=== PATIENT | male | born 1950 | race Hispanic/Latino ===

== ENCOUNTER 2018-02-20 05:40 | Observation (INO) | payer OTHER ==
[2018-02-18 15:00] VITALS: BP 149/61
[2018-02-18 15:27] LABS: BASOPHILS % (AUTO) 0.3 % (0.0-5.0); EOSINOPHILS % (AUTO) 2.2 % (0.0-8.0); HEMATOCRIT 40.6 % (42-54); LYMPHOCYTES % (AUTO) 17.3 % (21.0-51.0); MEAN CORPUSCULAR HEMOGLOBIN 31.5 pg (27.0-33.0); MEAN CORPUSCULAR HGB CONC 34.9 g/dL (32.0-36.0); MEAN CORPUSCULAR VOLUME 90.2 fL (79-99); MONOCYTES % (AUTO) 11.1 % (3.0-13.0); NEUTROPHILS % (AUTO) 69.1 % (40.0-77.0); PLATELET COUNT (AUTO) 196 K/uL (130-400)
[2018-02-18 15:40] LABS: CREATININE 0.8 mg/dL (0.5-1.5); POTASSIUM 3.5 mmol/L (3.5-5.1)
[2018-02-18 15:42] LABS: INR 1.1 (0.85-1.15); PARTIAL THROMBOPLASTIN TIME 28.4 SEC (26.3-35.5); PROTHROMBIN TIME 11.5 SEC (9.6-11.6)
[~2018-02-20] VITALS: Ht 170.2 cm; Wt 88.9 kg
[2018-02-20] VITALS (12 sets, daily range): BP systolic 123–154; BP diastolic 65–80
[~2018-02-20 05:40] MED LIST: ASPI-1197 PO; METF500T6 PO; NIFE30TA98 PO; ONDANSETRON HCL 4 MG/2 ML VIAL ONE; PROMETHAZINE HCL 25 MG/ML 1ML AMPULE IM ONE
[2018-02-20] MEDS ORDERED: SODIUM CHLORIDE 0.9% 1000ML 1,000 ML IV SCH (08:00)
[2018-02-20] MEDS ORDERED: CEFAZOLIN 1GM / D5W 50ML 150 ML ONE (08:16)
[2018-02-20] MEDS ORDERED: LIDOCAINE HCL 1% MDV 50ML VIAL ONE (08:16)
[2018-02-20] MEDS ORDERED: BUPIVACAINE/PF 0.25% 30ML VIAL IJ ONE (08:16)
[2018-02-20] MEDS ORDERED: DEXTROSE 50%-WATER 50 ML DISP.SYRIN IV PRN (10:15)
[2018-02-20] MEDS ORDERED: ONDANSETRON HCL 4 MG/2 ML VIAL IV PRN (10:15)
[2018-02-20] MEDS ORDERED: ACETAMINOPHEN-CODEINE 300/30MG TAB PO PRN ×2 (10:15)
[2018-02-20] MEDS ORDERED: TEMAZEPAM 30 MG CAP PO PRN (10:15)
[2018-02-20] MEDS ORDERED: INSULIN HUMULIN R 100 UNIT/ML 3ML SQ SCH (11:30)
[2018-02-20] MEDS ORDERED: POTASSIUM CHLORIDE 20MEQ/100ML 100 ML IV PRN (15:00)
[2018-02-20] MEDS ORDERED: POTASSIUM CHLORIDE 10% ELIXIR 20 MEQ/15 ML UDCUP PO PRN (15:00)
[2018-02-20] MEDS ORDERED: POTASSIUM CHLORIDE 20 MEQ ERTAB PO PRN (15:00)
[2018-02-20] MEDS ORDERED: LIDOCAINE HCL-MPF 1% 2ML VIAL IVP PRN (15:00)
[2018-02-20] MEDS: INSULIN HUMULIN R 100 UNIT/ML 3ML SQ SCH ×2 (16:30→20:57)
[2018-02-20] MEDS: CEFAZOLIN SODIUM 1 GM VIAL IVP SCH (17:10)
[2018-02-20] MEDS ORDERED: METFORMIN HCL 500 MG TABLET PO SCH (21:00)
[2018-02-21] MEDS: CEFAZOLIN SODIUM 1 GM VIAL IVP SCH (00:20)
[2018-02-21 03:29] VITALS: BP 135/74
[2018-02-21 07:00] VITALS: BP 139/82
[2018-02-21] MEDS: INSULIN HUMULIN R 100 UNIT/ML 3ML SQ SCH (07:00)
[2018-02-21] MEDS ORDERED: NIFEDIPINE ER 30 MG TAB PO SCH (09:00)
[2018-02-21] MEDS ORDERED: ASPIRIN 81MG TAB.CHEW PO SCH (09:00)
[2018-02-21 11:00] VITALS: BP 137/81
== END 2018-02-21 12:40 | disposition home or self-care (01) ==
LOC: DAH 05:40 → DAHIP 05:41 → DAH 05:41 → 2AH 13:53
PROVIDERS: ADMIT Internal Medicine; ATTEND Internal Medicine
DX: I45.9 Conduction disorder, unspecified (principal); I10 Essential (primary) hypertension; E11.9 Type 2 diabetes mellitus without complications; Z95.0 Presence of cardiac pacemaker; Z82.49 Family history of ischemic heart disease and other diseases of the circulatory system
CPT/HCPCS: 33208; 36415; 71046; 80048; 82948 ×6; 85025; 85610; 85730; 93005; 96374; 96376; A4218 ×2; A4606; C1785; C1898 ×2; G0378 ×31; J0690 ×3; J2405; J2550; J3490 ×2; J7030

== ENCOUNTER → 2022-03-21 | Outpatient (CLI) | payer OTHER ==
[~2022-03-21] MED LIST changes: +METF-444 PO; -METF500T6 PO; -ONDANSETRON HCL 4 MG/2 ML VIAL ONE; -PROMETHAZINE HCL 25 MG/ML 1ML AMPULE IM ONE
== END | disposition home or self-care (01) ==
LOC: SHCH 13:12
PROVIDERS: ATTEND Internal Medicine Cardiovascular Disease
DX: I08.0 Rheumatic disorders of both mitral and aortic valves (principal); I49.5 Sick sinus syndrome; Z95.0 Presence of cardiac pacemaker
CPT/HCPCS: 93306